=== PATIENT | male | born 1965 | race Two or more races ===

== ENCOUNTER 2019-07-18 10:32 | Inpatient (IN) | payer OTHER ==
[~2019-07-18] VITALS: Ht 165.1 cm; Wt 83.0 kg
[2019-07-18] MEDS ORDERED: ONDANSETRON HCL 4MG/2ML INJ IV STA (11:17)
[2019-07-18] MEDS ORDERED: SODIUM CHLORIDE 0.9% 1,000 ML IV ONE (11:17)
[2019-07-18] MEDS ORDERED: FOLIC ACID 1 MG, THIAMINE HCL 100 MG, MVI, ADULT NO.1 10 ML in DEXTROSE 5% WATER 1,000 ML IV ONE ×4 (11:30)
[2019-07-18] MEDS ORDERED: LORAZEPAM 2MG/ML CPJ IV ONE (11:30)
[2019-07-18 11:43] LABS: BASOPHILS % 0.2 % (0.0-2.0); EOSINOPHILS % 0.1 % (0.0-5.0); LYMPHOCYTES % 16.2 % (20.0-50.0); MEAN CORPUSCULAR HEMOGLOBIN 37.7 pg (28.0-32.0); MEAN CORPUSCULAR VOLUME 112.2 fL (80.0-94.0); MEAN PLATELET VOLUME 8.5 fl (7.4-10.4); MONOCYTES % 5.6 % (2.0-8.0); NEUTROPHILS % 77.9 % (40.0-76.0); PLATELET 136 x1000/uL (130-400); RED BLOOD CELL COUNT 1.54 mill/uL (4.7-6.1); RED CELL DISTRIBUTION WIDTH 13.9 % (11.6-14.6)
[2019-07-18 11:51] LABS: CHLORIDE 103 mEq/L (98-107)
[2019-07-18 11:54] LABS: *AMPHETAMINES SCREEN URINE NEGATIVE (NEGATIVE); *BARBITURATES SCREEN URINE NEGATIVE (NEGATIVE); *BENZODIAZEPINES SCREEN URINE PRESUMTIVE POSITIVE (NEGATIVE); *COCAINE SCREEN URINE NEGATIVE (NEGATIVE); OPIATES URINE SCREEN NEGATIVE (NEGATIVE)
[2019-07-18 11:54] LABS: ETHANOL BLOOD < 10 mg/dL
[2019-07-18 11:55] LABS: CANNABINOID URINE SCREEN NEGATIVE (NEGATIVE); PHENCYCLIDINE URINE SCREEN NEGATIVE (NEGATIVE)
[2019-07-18 11:56] LABS: HEMATOCRIT. 17.3 % (42.0-52.0); HEMOGLOBIN. 5.8 g/dL (14.0-18.0)
[2019-07-18 11:58] LABS: METHADONE URINE SCREEN NEGATIVE (NEGATIVE)
[2019-07-18 12:32] LABS: PLATELET ESTIMATE NORMAL
[2019-07-18] MEDS ORDERED: PANTOPRAZOLE SODIUM 40 MG/VIAL IV ONE ×2 (12:45→21:30)
[2019-07-18] MEDS ORDERED: PANTOPRAZOLE 80 MG in SODIUM CHLORIDE 0.9% 100 ML IV SCH ×2 (12:45→21:30)
[2019-07-18] MEDS ORDERED: OCTREOTIDE 1,000 MCG in SODIUM CHLORIDE 0.9% 100 ML IV ONE (12:45)
[2019-07-18] MEDS ORDERED: PANTOPRAZOLE 80 MG in SODIUM CHLORIDE 0.9% 100 ML IV ONE (13:00)
[2019-07-18] MEDS ORDERED: OCTREOTIDE 1,000 MCG in SODIUM CHLORIDE 0.9% 98 ML IV ONE (13:00)
[2019-07-18] MEDS ORDERED: HYDROCODONE/ACETAMINOPHEN 5/325MG TABLET PO PRN (15:30)
[2019-07-18] MEDS ORDERED: LORAZEPAM 2MG/ML CPJ IV PRN (15:30)
[2019-07-18] MEDS ORDERED: CLONIDINE 0.1MG TABLET PO PRN (15:30)
[2019-07-18] MEDS ORDERED: ONDANSETRON HCL 4MG/2ML INJ IV PRN (15:30)
[2019-07-18] MEDS ORDERED: MORPHINE SULFATE 2 MG/ML CPJ (NOT FOR IM USE) IV PRN (16:39)
[2019-07-18 22:05] VITALS: BP 130/76
[2019-07-18 22:26] VITALS: BP 129/82
[2019-07-18] MEDS: SODIUM CHLORIDE 0.9% 1,000 ML IV SCH (22:59)
[2019-07-18 23:00] VITALS: BP 149/101
[2019-07-19] VITALS (23 sets, daily range): BP systolic 110–145; BP diastolic 67–88
[2019-07-19] MEDS: THIAMINE HCL 100MG TABLET PO SCH (08:28)
[2019-07-19] MEDS: SODIUM CHLORIDE 0.9% 1,000 ML IV SCH ×2 (08:29→18:23)
[2019-07-19 11:26] LABS: BASOPHILS % 0.6 % (0.0-2.0); EOSINOPHILS % 0.7 % (0.0-5.0); LYMPHOCYTES % 33.5 % (20.0-50.0); MEAN CORPUSCULAR HEMOGLOBIN 37.1 pg (28.0-32.0); MEAN PLATELET VOLUME 8.2 fl (7.4-10.4); MONOCYTES % 6.9 % (2.0-8.0); NEUTROPHILS % 58.3 % (40.0-76.0); PLATELET 146 x1000/uL (130-400); RED BLOOD CELL COUNT 1.63 mill/uL (4.7-6.1)
[2019-07-19 11:30] LABS: HEMATOCRIT. 17.8 % (42.0-52.0); HEMOGLOBIN. 6.1 g/dL (14.0-18.0)
[2019-07-19 11:56] LABS: CHLORIDE 110 mEq/L (98-107)
[2019-07-19] MEDS: PANTOPRAZOLE 80 MG in SODIUM CHLORIDE 0.9% 100 ML IV SCH ×2 (14:00→22:18)
[2019-07-19] MEDS ORDERED: MIDAZOLAM HCL 5 MG/5 ML VIAL ONE (14:46)
[2019-07-19] MEDS ORDERED: FENTANYL CITRATE/PF 50MCG/ML 2ML VIAL ONE (14:46)
[2019-07-19 14:47] LABS: INR 1.1; PROTHROMBIN TIME 11.4 sec (9.6-11.0)
[2019-07-19] MEDS: SUCRALFATE 1G TABLET PO SCH (20:44)
[2019-07-19 21:47] LABS: HEMATOCRIT 23.8 % (42.0-52.0); HEMOGLOBIN 8.3 g/dL (14.0-18.0); INR 1.1; PROTHROMBIN TIME 11.3 sec (9.6-11.0)
[2019-07-20] VITALS (9 sets, daily range): BP systolic 100–138; BP diastolic 60–114
[2019-07-20] MEDS: SUCRALFATE 1G TABLET PO SCH ×2 (06:47→13:07)
[2019-07-20] MEDS: SODIUM CHLORIDE 0.9% 1,000 ML IV SCH (06:49)
[2019-07-20 07:08] LABS: FOLIC ACID (FOLATE) SERUM 11.3 ng/mL (>5.38)
[2019-07-20] MEDS ORDERED: OMEPRAZOLE 20MG CAPSULE EXTENDED RELEASE PO SCH (07:30)
[2019-07-20] MEDS: THIAMINE HCL 100MG TABLET PO SCH (08:23)
== END 2019-07-20 15:30 | disposition home or self-care (01) | DRG 377 ==
LOC: ER 10:32 → 5EST 14:18 → ENRESERV 20:00
PROVIDERS: ADMIT Internal Medicine Nephrology; ATTEND Internal Medicine Nephrology
PROC: 30233N1 Transfusion of Nonautologous Red Blood Cells into Peripheral Vein, Percutaneous Approach (ICD-10-PCS; principal; 2019-07-18)
PROC: 0DB68ZX Excision of Stomach, Via Natural or Artificial Opening Endoscopic, Diagnostic (ICD-10-PCS; 2019-07-19)
DX: K29.71 Gastritis, unspecified, with bleeding (principal); N17.0 Acute kidney failure with tubular necrosis; E44.0 Moderate protein-calorie malnutrition; E87.1 Hypo-osmolality and hyponatremia; F10.230 Alcohol dependence with withdrawal, uncomplicated; D62 Acute posthemorrhagic anemia; K26.4 Chronic or unspecified duodenal ulcer with hemorrhage; K29.81 Duodenitis with bleeding; E86.0 Dehydration; E87.6 Hypokalemia; F17.210 Nicotine dependence, cigarettes, uncomplicated; I10 Essential (primary) hypertension; Z60.2 Problems related to living alone; R73.9 Hyperglycemia, unspecified; E83.51 Hypocalcemia; K44.9 Diaphragmatic hernia without obstruction or gangrene; D75.89 Other specified diseases of blood and blood-forming organs; F10.20 Alcohol dependence, uncomplicated; Z71.41 Alcohol abuse counseling and surveillance of alcoholic; Z87.11 Personal history of peptic ulcer disease; Z68.30 Body mass index [BMI] 30.0-30.9, adult
CPT/HCPCS: 36415; 76700; 80048; 80305; 80320; 82270; 82607; 82746; 83036; 83880; 84484; 85014; 85018; 85049; 85384; 86850; 86900; 86920; 88305; 88313; 93005; 99285; C9113; J2060; J2250; J2354; J2405; J3010; J3411; J3490; J7030; J7040; J7050; J7070; P9016; P9021; G0480

== ENCOUNTER 2024-01-26 15:29 | Inpatient (IN) | payer OTHER ==
[~2024-01-26] VITALS: Ht 172.7 cm; Wt 74.8 kg
[2024-01-26 16:19] LABS: BASOPHILS % 0.4 % (0.0-2.0); DIFFERENTIAL COMMENT 0; EOSINOPHILS % 0.4 % (0.0-5.0); LYMPHOCYTES % 28.6 % (20.0-50.0); MEAN CORPUSCULAR HEMOGLOBIN 33.8 pg (28.0-32.0); MEAN CORPUSCULAR HGB CONC 33.3 g/dL (31.0-37.0); MEAN CORPUSCULAR VOLUME 101.6 fL (80.0-94.0); MONOCYTES % 8.4 % (2.0-8.0); NEUTROPHILS % 62.2 % (40.0-76.0); PLATELET 188 x1000/uL (130-400); RED BLOOD CELL COUNT 4.13 mill/uL (4.7-6.1); RED CELL DISTRIBUTION WIDTH 15.2 % (11.6-14.6)
[2024-01-26 16:25] LABS: PROTHROMBIN TIME 11.4 sec (9.6-11.0)
[2024-01-26 16:35] LABS: ALANINE AMINOTRANSFERASE 36 IU/L (10-49); ALBUMIN 4.7 g/dL (3.2-4.8); ASPARTATE AMINOTRANSFERASE 29 IU/L (<34); BILIRUBIN TOTAL 0.5 mg/dL (0.1-1.0); CALCIUM 9.3 mg/dL (8.7-10.4); CARBON DIOXIDE 28 mEq/L (21-32); CHLORIDE 105 mEq/L (98-107); CREATININE 1.4 mg/dL (0.6-1.3); GLUCOSE 212 mg/dL (70-105); POTASSIUM 4.4 mEq/L (3.5-5.1); PROTEIN TOTAL 7.9 g/dL (6.0-8.3); SODIUM 138 mEq/L (136-145); TROPONIN I HIGH SENSITIVITY 5 ng/L (3.0-53); UREA NITROGEN BLOOD 12 mg/dL (9-23)
[2024-01-26 16:53] LABS: CLARITY URINE CLEAR (CLEAR); COLOR URINE DARK YELLOW (YELLOW); GLUCOSE URINE 3+ (NEGATIVE); KETONES URINE TRACE (NEGATIVE); LEUKOCYTE ESTERASE URINE NEGATIVE (NEGATIVE); NITRITE URINE NEGATIVE (NEGATIVE); OCCULT BLOOD URINE NEGATIVE (NEGATIVE); PROTEIN URINE TRACE (NEGATIVE); SPECIFIC GRAVITY URINE 1.039 (1.005-1.030)
[2024-01-26 17:03] LABS: BACTERIA URINE NONE SEEN; RBC URINE 0-2 /hpf (0-2); SQUAMOUS EPITHELIAL CELL URINE 1+ /lpf (RARE/1+); WBC URINE 0-2 /hpf (0-2)
[2024-01-26] MEDS: LABETALOL 5MG/ML SYR 20 MG/4 ML SYRINGE IV ONE (17:07)
[2024-01-26 19:10] LABS: TROPONIN I HIGH SENSITIVITY 5 ng/L (3.0-53)
[2024-01-27] MEDS ORDERED: MAGNESIUM/ALUMINUM HYDROXIDE/SIMETHICONE 30ML UDC PO PRN (00:15)
[2024-01-27] MEDS ORDERED: ACETAMINOPHEN 325MG TABLET PO PRN ×2 (00:15)
[2024-01-27] MEDS ORDERED: DIAZEPAM 5 MG/ML 2ML SYR IV PRN (00:15)
[2024-01-27] MEDS ORDERED: CLONIDINE 0.1MG TABLET PO PRN (00:15)
[2024-01-27] MEDS ORDERED: HYDRALAZINE 20MG/ML VIAL IV PRN (00:15)
[2024-01-27] MEDS ORDERED: ZOLPIDEM TARTRATE 5MG TABLET PO PRN (00:15)
[2024-01-27] MEDS ORDERED: ONDANSETRON HCL 4MG/2ML INJ IV PRN (00:15)
[2024-01-27] MEDS ORDERED: DEXTROSE 50% WATER 50ML SYRINGE IV PRN (00:15)
[2024-01-27] MEDS ORDERED: DIPHENHYDRAMINE 50MG/ML VIAL IV PRN (00:15)
[2024-01-27] MEDS: AMLODIPINE 5MG TABLET PO SCH (00:43)
[2024-01-27] MEDS: LOSARTAN 50 MG TABLET PO SCH (00:43)
[2024-01-27] MEDS: CHLORDIAZEPOXIDE 25MG CAPSULE PO SCH ×2 (00:44→09:11)
[2024-01-27] MEDS: PANTOPRAZOLE SODIUM 40 MG/VIAL IV SCH (00:44)
[2024-01-27] MEDS: MVI, ADULT NO.1 10 ML, FOLIC ACID 1 MG, THIAMINE HCL 100 MG in SODIUM CHLORIDE 0.9% 1,0... IV SCH (01:38)
[2024-01-27] MEDS: SODIUM CHLORIDE 0.9% INJ 3ML FLUSH IVF SCH (06:09)
[2024-01-27] MEDS: BLOOD SUGAR DIAGNOSTIC STRIP TEST SCH (09:00)
[2024-01-27] MEDS: INSULIN LISPRO 100 UNITS/ML SUBCUT SCH (09:01)
[2024-01-27 10:50] VITALS: BP 147/82; PULSE 72; RESP 16; TEMP 97.1
[2024-01-27 12:00] VITALS: BP 149/88; PULSE 63; RESP 18; TEMP 97.8
[2024-01-27 16:00] VITALS: BP 128/82; PULSE 69; RESP 18; TEMP 97.6
[2024-01-27] MEDS: METFORMIN HCL 500MG TABLET PO SCH (18:14)
[2024-01-27 20:00] VITALS: BP 133/75; PULSE 65; RESP 18; TEMP 97.9
[2024-01-28] VITALS: BP 137/82; PULSE 61; RESP 18; TEMP 97.7
[2024-01-28 04:00] VITALS: BP 138/82; PULSE 66; RESP 19; TEMP 97.5
[2024-01-28 06:50] LABS: BASOPHILS % 0.5 % (0.0-2.0); DIFFERENTIAL COMMENT 0; EOSINOPHILS % 0.9 % (0.0-5.0); HEMATOCRIT. 40.6 % (42.0-52.0); HEMOGLOBIN. 13.8 g/dL (14.0-18.0); LYMPHOCYTES % 50.3 % (20.0-50.0); MEAN CORPUSCULAR HEMOGLOBIN 34.9 pg (28.0-32.0); MEAN CORPUSCULAR VOLUME 102.7 fL (80.0-94.0); MEAN PLATELET VOLUME 7.9 fl (7.4-10.4); MONOCYTES % 10.2 % (2.0-8.0); NEUTROPHILS % 38.1 % (40.0-76.0); PLATELET 183 x1000/uL (130-400); RED BLOOD CELL COUNT 3.96 mill/uL (4.7-6.1); RED CELL DISTRIBUTION WIDTH 15.1 % (11.6-14.6); WHITE BLOOD COUNT 5.8 x1000/uL (4.5-11.0)
[2024-01-28 08:19] LABS: CALCIUM 9.5 mg/dL (8.7-10.4); CARBON DIOXIDE 24 mEq/L (21-32); CHLORIDE 107 mEq/L (98-107); CREATININE 0.8 mg/dL (0.6-1.3); GLUCOSE 107 mg/dL (70-105); POTASSIUM 3.8 mEq/L (3.5-5.1); SODIUM 139 mEq/L (136-145); UREA NITROGEN BLOOD 7 mg/dL (9-23)
[2024-01-28 13:07] VITALS: BP 124/81; PULSE 86; TEMP 97.6; O2SAT 96
== END 2024-01-28 13:42 | disposition home or self-care (01) | DRG 199 ==
LOC: ER 15:29 → MICUSO 20:50 → EDBEDREQ 21:00 → EDBEDREQTM 21:00 → 7EST 01-27 09:23
PROVIDERS: ADMIT Internal Medicine; ATTEND Internal Medicine
DX: I16.0 Hypertensive urgency (principal); E11.65 Type 2 diabetes mellitus with hyperglycemia; F10.239 Alcohol dependence with withdrawal, unspecified; I10 Essential (primary) hypertension; Z87.11 Personal history of peptic ulcer disease; Z91.148 Patient's other noncompliance with medication regimen for other reason; Z79.899 Other long term (current) drug therapy; Z79.84 Long term (current) use of oral hypoglycemic drugs; Y90.9 Presence of alcohol in blood, level not specified
CPT/HCPCS: 36415; 70496; 70498; 80048; 80053; 81003; 82962; 83036; 83735; 84100; 84484; 85025; 93005; 99291; C9113; J1815; J3411; J3490; J7030